=== PATIENT | male | born 1995 | race Caucasian/White ===

== ENCOUNTER 2017-12-21 17:39 | Emergency (ER) | payer OTHER ==
[~2017-12-21] VITALS: Ht 180.3 cm; Wt 72.6 kg
[2017-12-21 18:05] LABS: ABSOLUTE BASOPHIL COUNT 0 /CUMM (0.0-0.2); ABSOLUTE EOSINOPHIL COUNT 0.3 /CUMM (0.0-0.7); ABSOLUTE GRANULOCYTE CT 6.2 /CUMM (1.4-6.5); ABSOLUTE LYMPH COUNT 2.4 /CUMM (1.2-3.4); ABSOLUTE MONOCYTE COUNT 0.7 /CUMM (0.10-0.60); BASOPHIL % 0.4 % (0.0-2.0); EOSINOPHIL % 2.7 % (0-5); GRANULOCYTE % 65.2 % (42.2-75.2); HEMATOCRIT 48.9 % (42-52); MEAN CORPUSCULAR HGB 28.8 PG (27.0-31.0); MEAN CORPUSCULAR HGB CONC 33.1 G/DL (33.0-37.0); MEAN CORPUSCULAR VOLUME 87.2 FL (80.0-94.0); MEAN PLATELET VOLUME 7.7 FL (7.4-10.4); PLATELET COUNT 254 /CUMM (130-400); RBC DISTRIBUTION WIDTH 12.8 % (11.5-14.5); RED BLOOD CELL CT 5.61 /CUMM (4.70-6.10); WHITE BLOOD CELL COUNT 9.5 /CUMM (4.8-10.8)
[2017-12-21 18:17] LABS: PT 11.5 SEC (9.4-12.5); PTT 37 SEC (25-37)
--- NOTE | 2017-12-21 19:11 | ED GI/GU/ABDOMINAL COMPLAINT ---
History of Present Illness General Chief Complaint: Abdominal Pain/Flank Pain Stated Complaint: ABD PAIN, BLOOD IN STOOL Source: patient Exam Limitations: no limitations Vital Signs & Intake/Output Vital Signs & Intake/Output Vital Signs Date Time Temp Pulse Resp B/P B/P Pulse O2 O2 Flow FiO2 Mean Ox Delivery Rate 12/21 2049 68 18 131/61 96 Room Air 12/21 1931 98.2 64 18 122/67 97 Room Air 12/21 1857 99 Room Air 12/21 1743 98.4 108 15 135/61 98 Room Air Room Air ED Intake and Output 12/22 0000 12/21 1200 Intake Total Output Total Balance Patient 160 lb Weight Weight Reported by Patient Measurement Method Allergies Coded Allergies: No Known Allergies (12/21/17) Reconcile Medications No Known Home Medications Triage Note: PT TO ED FOR C/C OF ABD CRAMPING WITH BLOODY STOOLS X 4 DAYS. BRIGHT RED BLOOD. SAME THING HAPPENED A FEW YEARS AGO AND WAS TOLD HE MIGHT HAVE INTERNAL HEMMORHOIDS. PT DENIES N/V/D. Triage Nurses Notes Reviewed? yes Onset: Abrupt Duration: day(s): (3), changing over time, continues in ED Timing: single episode today Quality/Severity: cramping Severity Numbers: 6 Location: epigastric, left upper quadrant Radiation: no radiation Activities at Onset: none Prior Abdominal Problems: none Past Sexual History: Unobtainable at this time No Modifying Factors: none Modifying Factors: Worsens With: movement, palpation. Associated Symptoms: abdominal pain, bright red blood per rectum HPI: 22-year-old male no past medical history presents for evaluation of abdominal pain and bright red blood in stool. Patient states that symptoms started 2 or 3 days ago and have been persistent. He reports cramping abdominal pain in the epigastric area that does not radiate. The pain is intermittently sharp. He states that symptoms started after a night of heavy drinking. He denies any nausea vomiting or diarrhea. He states that he had a bowel movement on 2 different occasions over the past 3 days and noticed several drops of bright red blood. He denies any straining or constipation no pain with bowel movements. He had a similar episode a few years ago and was told he may have internal hemorrhoids. He never followed up with GI. He is not taking any medicine for her symptoms. He denies any chest pain shortness of breath nausea vomiting diarrhea or any other associated symptoms. He does not take blood thinners. No dizziness or lightheadedness (González Mohan) Past History Travel History Traveled to [place] past 21 day No Medical History Any Pertinent Medical History? see below for history Neurological: NONE EENT: NONE Cardiovascular: NONE Respiratory: NONE Gastrointestinal: NONE Hepatic: NONE Renal: NONE Musculoskeletal: NONE Psychiatric: NONE Endocrine: NONE Blood Disorders: NONE Cancer(s): NONE FITTER WELDER/Reproductive: NONE Surgical History Surgical History: non-contributory Psychosocial History What is your primary language Turkmen Tobacco Use: Never used ETOH Use: occasional use Illicit Drug Use: denies illicit drug use Family History Hx Contributory? No (González Mohan) Review of Systems Review of Systems Constitutional: Reports: no symptoms. EENTM: Reports: no symptoms. Respiratory: Reports: no symptoms. Cardiovascular: Reports: no symptoms. GI: Reports: see HPI, abdominal pain, nausea, bloody stool. Genitourinary: Reports: no symptoms. Musculoskeletal: Reports: no symptoms. Skin: Reports: no symptoms. Neurological/Psychological: Reports: no symptoms. Hematologic/Endocrine: Reports: no symptoms. Immunologic/Allergic: Reports: no symptoms. All Other Systems: Reviewed and Negative (González Mohan) Physical Exam Physical Exam General Appearance: well developed/nourished, no apparent distress, alert, awake Head: atraumatic, normal appearance Eyes: Bilateral: normal appearance, PERRL, EOMI. Ears, Nose, Throat, Mouth: hearing grossly normal, moist mucous membrane Neck: normal inspection, supple, full range of motion Respiratory: normal breath sounds, chest non-tender, no respiratory distress, lungs clear Cardiovascular: regular rate/rhythm, normal peripheral pulses Peripheral Pulses: 2+ radial (R), 2+ radial (L) Gastrointestinal: normal bowel sounds, soft, no organomegaly, tenderness ( epigastric ) Rectal: normal inspection, normal rectal tone, heme negative stool Back: normal inspection, normal range of motion, no vertebral tenderness Extremities: normal range of motion Neurologic/Psych: no motor/sensory deficits, awake, alert, oriented x 3, normal gait Skin: intact, normal color, warm/dry Core Measures ACS in differential dx? No Sepsis Present: No Sepsis Focused Exam Completed? No (González Mohan) Progress Differential Diagnosis: appendicitis, biliary colic, cholecystitis, diverticulitis, gastritis, pancreatitis, peptic ulcer, PUD/GERD, ureterolithiasis Plan of Care: Orders Procedure Date/time Status Add-on Test (ER Only) 12/21 1941 Active EKG 12/21 1941 Active URINE DRUG SCREEN FOR ER ONLY 12/21 1903 Complete Add-on Test (ER Only) 12/21 1902 Active MISTAKE 12/21 185 Active TROPONIN LEVEL 12/21 175 Complete LIPASE 12/21 175 Complete C-REACTIVE PROTEIN 12/21 1756 Complete URINALYSIS 12/21 174 Complete PARTIAL THROMBOPLASTIN TIME 12/21 174 Complete PROTHROMBIN TIME 12/21 174 Complete COMPREHENSIVE METABOLIC PANEL 12/21 174 Complete CBC WITHOUT DIFFERENTIAL 12/21 1744 Complete Laboratory Tests 12/21/171907: Urine Opiates Screen < 100.00, Methadone Screen < 40, Barbiturate Screen < 60, Ur Phencyclidine Scrn < 6.00, Amphetamines Screen < 100, U Benzodiazepines Scrn < 85, Urine Cocaine Screen > 1000 H, Urine Cannabis Screen 66.40 H, Urine Color YEL, Urine Clarity CLEAR, Urine pH 6.0, Ur Specific Allison 1.025, Urine Protein NEG, Urine Ketones NEG, Urine Nitrite NEG, Urine Bilirubin NEG, Urine Urobilinogen 0.2, Ur Leukocyte Esterase NEG, Ur Microscopic EXAM NOT REQUIRED, Urine Hemoglobin NEG, Urine Glucose NEG 12/21/171756: Anion Gap 14, Estimated GFR > 60, BUN/Creatinine Ratio 21.0, Glucose 102 H, Calcium 10.3 H, Total Bilirubin 0.7, AST 21, ALT 26, Alkaline Phosphatase 67, Troponin I < 0.01, C-Reactive Prot, Quant < 0.5, Total Protein 7.8, Albumin 5.1 H, Globulin 2.7, Albumin/Globulin Ratio 1.9, Lipase 64, PT 11.5, INR 1.10, APTT 37, CBC w Diff NO MAN DIFF REQ, RBC 5.61, MCV 87.2, MCH 28.8, MCHC 33.1, RDW 12.8, MPV 7.7, Gran % 65.2, Lymphocytes % 24.8, Monocytes % 6.9, Eosinophils % 2.7, Basophils % 0.4, Absolute Granulocytes 6.2, Absolute Lymphocytes 2.4, Absolute Monocytes 0.7 H, Absolute Eosinophils 0.3, Absolute Basophils 0 Patient seen and evaluated. He has epigastric pain and reports drops of bright red blood in the stool. His rectal exam is negative for any hemorrhoids or microscopic blood. Blood work is within normal limits. Urine drug screen shows evidence of cocaine in his system. He denies any chest pain EKG troponin are negative. Patient was medicated with GI cocktails feeling somewhat better. Waiting on CT scan results. CT scan is within normal limits. All blood work is within normal limits. Patient will be referred to GI. Discussed return precautions patient is nontoxic-appearing agrees the plan. Advised Pepcid and Maalox. Avoid alcohol caffeine spicy foods. Discussed return precautions patient appears clinically well and agrees. Diagnostic Imaging: Viewed by Me: CT Scan. Discussed w/RAD: CT Scan. Radiology Impression: PATIENT: OSCAR SHULTZ PRESENT AGE: 22 PATIENT ACCOUNT NO: [id number] : 95 LOCATION: [facility] ORDERING PHYSICIAN: González CAAL SERVICE DATE: 12/21/17 EXAM TYPE: CAT - CT ABD & PELVIS W IV CONTRAST EXAMINATION: CT ABD PELVIS W IV CONTRAST CLINICAL INFORMATION: Pancreatitis, cholecystitis. COMPARISON: 2012 TECHNIQUE: Multidetector volumetric imaging was performed from the superior aspect of the liver through the pubic symphysis 94 mL Optiray 320 injected Sagittal and coronal reformatted images were obtained on the technologist's workstation. DLP: 287 mGy-cm FINDINGS: LOWER THORAX: Included lung bases are clear. HEPATOBILIARY: No focal hepatic lesions. No biliary ductal dilatation. GALLBLADDER: Gallbladder unremarkable. SPLEEN: Spleen is normal in size. PANCREAS: No focal mass or ductal dilatation. STOMACH AND GASTROINTESTINAL TRACT: Stomach is grossly unremarkable. There is no bowel distention or thickening. No CT evidence of appendicitis. ADRENALS: No adrenal nodules. KIDNEYS/URETERS: No hydronephrosis, stones or solid mass lesions. URINARY BLADDER: Unremarkable PELVIC VISCERA: Unremarkable PERITONEUM: No free air or fluid. LYMPH NODES: No lymphadenopathy. VASCULAR: Unremarkable BONES, ABDOMINAL WALL AND SOFT TISSUES: Age-appropriate changes of the spine and skeletal system, no destructive osteolytic or osteosclerotic bone lesion found IMPRESSION: No CT evidence of acute intra- abdominal process to explain patient's pain symptoms. The pancreas appear normal. Normal CT scan cannot entirely rule out the possibility of mild acute pancreatitis especially in the early stages. DICTATED BY: Natalie Sandoval MD DATE/TIME DICTATED:12/21/172024 TELECOM ANALYST:NASEEM DATE/TIME TRANSCRIBED:12/21/172024 Initial ED EKG: normal sinus rhythm, no ST T wave changes (González Mohan) Departure Departure Disposition: HOME OR SELF CARE Condition: Stable Clinical Impression Primary Impression: Epigastric pain Referrals: Leonides PUCKETT,Seng (PCP/Family) Tiny PUCKETT,Brett Real Additional Instructions: Rest and drink plenty of fluids. Eat bland foods like bananas rice applesauce and toast. Take [id number] Pepcid and [id number] Maalox for pain. Tylenol can also use for pain. Increase her intake of fiber and consider taking a stool softener to reduce straining during bowel movements. Follow-up with your primary care doctor and provided GI doctor dr howard. Monitor symptoms return with any concerns. Departure Forms: Customer Survey General Discharge Information Prescriptions: Current Visit Scripts No Known Home Medications (González Mohan) PA/ENAMEL DRIER Co-Sign Statement Statement: ED Attending supervision documentation- [] I saw and evaluated the patient. I have also reviewed all the pertinent lab results and diagnostic results. I agree with the findings and the plan of care as documented in the PA's/ENAMEL DRIER's documentation. [X] I have reviewed the ED Record and agree with the PA's/ENAMEL DRIER's documentation. [] Additions or exceptions (if any) to the PAs/ENAMEL DRIER's note and plan are summarized below: [] (Jw PUCKETT,Kenneth Dale)
--- NOTE | 2017-12-21 20:43 | CT SCAN REPORT ---
EXAMINATION: CT ABD PELVIS W IV CONTRAST CLINICAL INFORMATION: Pancreatitis, cholecystitis. COMPARISON: 2012 TECHNIQUE: Multidetector volumetric imaging was performed from the superior aspect of the liver through the pubic symphysis 94 mL Optiray 320 injected Sagittal and coronal reformatted images were obtained on the technologist's workstation. DLP: 287 mGy-cm FINDINGS: LOWER THORAX: Included lung bases are clear. HEPATOBILIARY: No focal hepatic lesions. No biliary ductal dilatation. GALLBLADDER: Gallbladder unremarkable. SPLEEN: Spleen is normal in size. PANCREAS: No focal mass or ductal dilatation. STOMACH AND GASTROINTESTINAL TRACT: Stomach is grossly unremarkable. There is no bowel distention or thickening. No CT evidence of appendicitis. ADRENALS: No adrenal nodules. KIDNEYS/URETERS: No hydronephrosis, stones or solid mass lesions. URINARY BLADDER: Unremarkable PELVIC VISCERA: Unremarkable PERITONEUM: No free air or fluid. LYMPH NODES: No lymphadenopathy. VASCULAR: Unremarkable BONES, ABDOMINAL WALL AND SOFT TISSUES: Age-appropriate changes of the spine and skeletal system, no destructive osteolytic or osteosclerotic bone lesion found IMPRESSION: No CT evidence of acute intra-abdominal process to explain patient's pain symptoms. The pancreas appear normal. Normal CT scan cannot entirely rule out the possibility of mild acute pancreatitis especially in the early stages.
[2017-12-21 20:50] VITALS: BP 131/61
== END 2017-12-21 20:51 ==
LOC: ERH 17:39
PROVIDERS: Physician Assistant Medical
DX: R10.13 Epigastric pain (principal)
CPT/HCPCS: 74177; 80307; 81003; 93005; 93010